=== PATIENT | female | born 1950 | race Caucasian/White ===

== ENCOUNTER 2017-04-19 11:02 | Inpatient (IN) | payer MEDICARE, OTHER ==
[~2017-04-19] VITALS: Ht 147.3 cm; Wt 54.4 kg
[~2017-04-19 11:02] MED LIST: ATIVAN1 MG ORAL; DIOVAN40 MG ORAL; METFORMIN HCL500 M1 ORAL; NITROFURANTOIN100 M2 ORAL; ZOFRAN ODT4 MG ORAL
[2017-04-19 11:56] VITALS: BP 178/76
[2017-04-19 12:08] LABS: BASOPHILS % (AUTO) 1.1 % (0.0-2.0); EOSINOPHILS % (AUTO) 1.5 % (0.0-3.0); LYMPHOCYTES % (AUTO) 21.8 % (20.0-45.0); MEAN CORPUSCULAR HEMOGLOBIN 27.6 PG (27.0-31.0); MEAN CORPUSCULAR HGB CONC 31.2 G/DL (32.0-36.0); MEAN CORPUSCULAR VOLUME 89 FL (80-99); MEAN PLATELET VOLUME 6.1 FL (6.5-10.1); MONOCYTES % (AUTO) 4.9 % (1.0-10.0); NEUTROPHILS % (AUTO) 70.7 % (45.0-75.0); PLATELET COUNT 344 K/UL (150-450); RED BLOOD COUNT 4.69 M/UL (4.20-5.40); RED CELL DISTRIBUTION WIDTH 13.5 % (11.6-14.8)
[2017-04-19 12:41] LABS: ALANINE AMINOTRANSFERASE 47 U/L (3-33); ALBUMIN/GLOBULIN RATIO 1.7 (1.0-2.7); ANION GAP 15 (5-15); ASPARTATE AMINO TRANSFERASE 46 U/L (5-40); CALCIUM 10.4 mg/dL (8.6-10.2); CARBON DIOXIDE 27 mEQ/L (20-30); CHLORIDE 97 mEQ/L (98-107); CREATININE 0.8 mg/dL (0.5-0.9); GLOMERULAR FILTRATION RATE > 60 mL/min (>60); HEMOLYSIS 3; LIPASE 55 U/L (< 60); POTASSIUM 4.3 mEQ/L (3.4-4.9); SODIUM 139 mEQ/L (135-145); TOTAL PROTEIN 7.9 g/dL (6.6-8.7)
[2017-04-19 12:46] LABS: REFLEX LACTIC ACID YES OR NO YES
[2017-04-19] MEDS ORDERED: NS 1000ml 1,600 ML IVLG ONE (13:00)
[2017-04-19 13:20] LABS: APPEARANCE,URINE CLEAR; KETONES,URINE NEGATIVE (NEGATIVE); LEUKOCYTE ESTERASE ,URINE 1+ (NEGATIVE); NITRITE,URINE NEGATIVE (NEGATIVE); PH,URINE 6 (4.5-8.0); PROTEIN,URINE NEGATIVE (NEGATIVE); UROBILINOGEN,URINE NORMAL MG/DL (0.0-1.0)
[2017-04-19 13:44] LABS: BACTERIA,URINE OCCASIONAL /HPF; RBC,URINE 0-2 /HPF (0 - 2); SQUAMOUS EPITHELIAL CELL,UR FEW /LPF (NONE/OCC); WBC,URINE 0-2 /HPF (0 - 2)
--- NOTE | 2017-04-19 13:50 | Diagnostic Imaging Report ---
Indication: Headache Technique: Contiguous 5 mm thick transaxial imaging of the head obtained in a Siemens Sensation [address] scanner. Soft tissue and bone windows generated. Total Dose length Product (DLP): [address] Dose Index Volume (CTDIvol): 70.38, 0.15 mGy Comparison: none Findings: Mild, nonspecific, white matter hypoattenuation is noted throughout the brain consistent with chronic small vessel disease. There is no midline shift, edema, acute hemorrhage, mass effect, or abnormal extra-axial fluid collections. Bones and extra osseous soft tissues are unremarkable. Impression: No acute intracranial bleed, mass effect or edema. Nonspecific white matter hypoattenuation probably due to chronic small vessel disease. The CT scanner at [facility] is accredited by the [employer] and the scans are performed using dose optimization techniques as appropriate to a performed exam including Automatic Exposure control.
--- NOTE | 2017-04-19 14:27 | Emergency Room Report ---
History of Present Illness General Chief Complaint: Nausea, Vomiting, and Diarrhea Source: Patient Present Illness HPI Patient present with a few different complaints Mainly complaining of urinary frequency Our patient also complains of general weakness She has been nauseated Denies any obvious fever Denies any neck pain or photophobia however patient complained of a headache and reports being on antibiotics recently for sinusitis Denies any chest pain at this time she does have intermittent shortness of breath denies any rash Patient provides a history of being off certain medications recently however cannot name all the medications Allergies: Coded Allergies: PROCHLORPERAZINE (Verified Allergy, Mild, Manic episode, 04/19/17) SULFA (SULFONAMIDE ANTIBIOTICS) (Verified Allergy, Unknown, 05/31/16) Patient History Past Medical History: see triage record Pertinent Family History: none Reviewed Nursing Documentation: PMH: Agreed, PSxH: Agreed Nursing Documentation-PMH Past Medical History: No History, Except For Hx Cardiac Problems: No Hx Hypertension: Yes Hx Pacemaker: No Hx Asthma: No Hx COPD: No Hx Diabetes: Yes - Type II Hx Cancer: No Hx Gastrointestinal Problems: No Hx Dialysis: No History Of Psychiatric Problem: Yes - Bipolar II Hx Neurological Problems: No Hx Cerebrovascular Accident: No Hx Seizures: No Review of Systems All Other Systems: negative except mentioned in HPI Physical Exam Vital Signs Date Time Temp Pulse Resp B/P (MAP) Pulse Ox O2 Delivery O2 Flow Rate FiO2 04/19/17 11:03 97.5 82 18 186/80 98 Room Air Sp02 EP Interpretation: reviewed, normal General Appearance: mild distress - appears anxious Head: normocephalic, atraumatic Eyes: bilateral eye PERRL, bilateral eye EOMI ENT: hearing grossly normal, TMs + canals normal, uvula midline, dry mucus membranes Neck: full range of motion, supple, no meningismus, no bony tend Respiratory: lungs clear, normal breath sounds, no rhonchi, no respiratory distress, no retraction, no accessory muscle use Cardiovascular #1: normal peripheral pulses, regular rate, rhythm, no edema, no gallop, no JVD, no murmur Gastrointestinal: normal bowel sounds, non tender, soft, no mass, no organomegaly, non-distended, no guarding, no hernia, no pulsatile mass, no rebound Genitourinary: no CVA tenderness Musculoskeletal: normal inspection Neurologic: oriented x3, responsive, 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 nml as tested, motor strength/ tone normal, sensory intact Psychiatric: anxious Skin: normal color, no rash, warm/dry, palpation normal Lymphatic: normal inspection, no adenopathy Medical Decision Making Diagnostic Impression: Primary Impression: Vomiting Additional Impressions: Frequency of urination Lactic acid acidosis ER Course Patient is a fairly complex patient with multiple differential to consideration including but not limited to cardiac cardiopulmonary and vascular emergencies Patient's lactic acid is elevated raising concern of acidosis and dehydration Patient also appears to have some underlying psychiatric conditions including anxiety is will also be addressed as inpatient Labs Test 04/19/17 11:45 04/19/17 12:48 White Blood Count 7.0 K/UL (4.8-10.8) Red Blood Count 4.69 M/UL (4.20-5.40) Hemoglobin 13.0 G/DL (12.0-16.0) Hematocrit 41.6 % (37.0-47.0) Mean Corpuscular Volume 89 FL (80-99) Mean Corpuscular Hemoglobin 27.6 PG (27.0-31.0) Mean Corpuscular Hemoglobin Concent 31.2 G/DL (32.0-36.0) Red Cell Distribution Width 13.5 % (11.6-14.8) Platelet Count 344 K/UL (150-450) Mean Platelet Volume 6.1 FL (6.5-10.1) Neutrophils (%) (Auto) 70.7 % (45.0-75.0) Lymphocytes (%) (Auto) 21.8 % (20.0-45.0) Monocytes (%) (Auto) 4.9 % (1.0-10.0) Eosinophils (%) (Auto) 1.5 % (0.0-3.0) Basophils (%) (Auto) 1.1 % (0.0-2.0) Sodium Level 139 mEQ/L (135-145) Potassium Level 4.3 mEQ/L (3.4-4.9) Chloride Level 97 mEQ/L (98-107) Carbon Dioxide Level 27 mEQ/L (20-30) Anion Gap 15 (5-15) Blood Urea Nitrogen 18 mg/dL (7-23) Creatinine 0.8 mg/dL (0.5-0.9) Estimat Glomerular Filtration Rate > 60 mL/min (>60) Glucose Level 183 mg/dL (74-106) Lactic Acid Level 2.60 mmol/L (0.66-2.22) Calcium Level 10.4 mg/dL (8.6-10.2) Total Bilirubin < 0.2 mg/dL (0.0-1.2) Aspartate Amino Transf (AST/SGOT) 46 U/L (5-40) Alanine Aminotransferase (ALT/SGPT) 47 U/L (3-33) Alkaline Phosphatase 115 U/L (35-104) Total Protein 7.9 g/dL (6.6-8.7) Albumin 5.0 g/dL (3.5-5.2) Globulin 2.9 g/dL Albumin/Globulin Ratio 1.7 (1.0-2.7) Lipase 55 U/L (< 60) Urine Color Pale yellow Urine Appearance Clear Urine pH 6 (4.5-8.0) Urine Specific [place] 1.015 (1.005-1.035) Urine Protein Negative (NEGATIVE) Urine Glucose (UA) Negative (NEGATIVE) Urine Ketones Negative (NEGATIVE) Urine Occult Blood Negative (NEGATIVE) Urine Nitrite Negative (NEGATIVE) Urine Bilirubin Negative (NEGATIVE) Urine Urobilinogen Normal MG/DL (0.0-1.0) Urine Leukocyte Esterase 1+ (NEGATIVE) Urine RBC 0-2 /HPF (0 - 2) Urine WBC 0-2 /HPF (0 - 2) Urine Squamous Epithelial Cells Few /LPF (NONE/OCC) Urine Bacteria Occasional /HPF (NONE) Rhythm Strip Diag. Results EP Interpretation: yes Rate: 88 Rhythm: NSR, no PVC's, no ectopy CT/MRI/US Diagnostic Results CT/MRI/US Diagnostic Results : Impression CT headImpression: No acute intracranial bleed, mass effect or edema. Nonspecific white matter hypoattenuation probably due to chronic small vessel disease. Last Vital Signs Date Time Temp Pulse Resp B/P (MAP) Pulse Ox O2 Delivery O2 Flow Rate FiO2 04/19/17 11:56 97.6 80 20 178/76 98 Room Air Status: improved Disposition: ADMITTED INPATIENT Condition: Serious Referrals: NON PHYSICIAN (PCP) ASHLEE FIELDS D.O. Apr 19, 2017 14:27
[2017-04-19] MEDS ORDERED: LORazepam Inj 2mg/ml 1ml IV ONE (14:30)
[2017-04-19] MEDS ORDERED: AMLODIPINE BESYL5 MG (15:35)
[2017-04-19] MEDS ORDERED: CYCLOBENZAPRINE10 MG (15:35)
[2017-04-19] MEDS ORDERED: VALSARTAN (15:36)
[2017-04-19] MEDS ORDERED: JANUMET 50-1,01 EACH (15:36)
[2017-04-19] MEDS ORDERED: FLONASE1 SPRAYS (15:36)
[2017-04-19] MEDS ORDERED: OMEPRAZOLE40 M1 (15:36)
[2017-04-19] MEDS ORDERED: ADVAIR 250-501 EACH (15:36)
[2017-04-19] MEDS ORDERED: DEXILANT60 MG (15:36)
[2017-04-19] MEDS ORDERED: VOLTAREN100 G1 (15:36)
[2017-04-19] MEDS ORDERED: LORATADINE10 M2 (15:36)
[2017-04-19 16:12] VITALS: BP 146/75
--- NOTE | 2017-04-19 16:23 | Consultation ---
History of Present Illness General Date patient seen: Apr 19, 2017 Chief Complaint: Headache nausea diarrhea emesis Referring physician: Dr. Vasquez Reason for Consultation: Cephalgia nausea intractable emesis diarrhea Present Illness HPI The patient is a 66 year old gentle lady with pmhx DM, psych disorder namely bi polar depression, total hysterectomy, oopharyctomy and appendectomy who presents to [facility] with with chief complaint of increased frequency of urination for 1 week. The patient states it comes out as a gush. She states it is copious amounts of urine. The patient denies dysuria or hematuria. I have been asked to consult on the case from an internal medicine point of view, at this time a complete renal examination will be conducted including ruling out infectious causes such as urinary tract infection and pyelonephritis. The patients blood sugar in the ER is noted to be elevated and the patient will also be given insulin per sliding scale as needed based on a sliding scale to better control her blood sugars. Allergies: Coded Allergies: PROCHLORPERAZINE (Verified Allergy, Mild, Manic episode, 04/19/17) SULFA (SULFONAMIDE ANTIBIOTICS) (Verified Allergy, Unknown, 05/31/16) Medication History Scheduled Amlodipine Besylate* (Amlodipine Besylate*), BID, (Reported) Cyclobenzaprine Hcl* (Flexeril*), NEEDED, (Reported) Dexlansoprazole (Dexilant), BID, (Reported) Diclofenac Sodium (Voltaren), PRN, (Reported) Fluticasone Propionate (Fluticasone Propionate), BID, (Reported) Fluticasone/Salmeterol (Advair 250-50 Diskus), PRN, (Reported) Levofloxacin* (Levaquin*), 500 MG ORAL DAILY Loratadine (Loratadine), PRN, (Reported) Lorazepam* (Ativan*), 1 MG ORAL BEDTIME Omeprazole (Omeprazole), BEFORE BREAKFAST, (Reported) Sitagliptin Phos/Metformin Hcl (Janumet 50-1,000 Mg Tablet), BID, (Reported) Valsartan (Diovan), 40 MG ORAL DAILY, (Reported) [Valsartan], BID, (Reported) Scheduled PRN Ondansetron Odt* (Zofran Odt*), 4 MG ORAL Q6H PRN for Nausea & Vomiting Patient History Healthcare decision maker Resuscitation status Advanced Directive on File Past Medical/Surgical History Past Medical/Surgical History: (1) Urinary tract infection (2) Vomiting (3) Sepsis (4) HTN (hypertension) (5) Diabetes mellitus type II, uncontrolled (6) Bipolar I disorder with dasia Review of Systems Constitutional: Reports: malaise, weakness Genitourinary: Reports: frequency, pain, retention, urgency Physical Exam General Appearance: no apparent distress Lines, tubes and drains: peripheral HEENT: normocephalic, atraumatic, PERRL Neck: non-tender, normal alignment, supple, normal inspection Respiratory/Chest: chest wall non-tender, normal breath sounds, no respiratory distress Breasts: no masses Cardiovascular/Chest: normal peripheral pulses, normal rate, regular rhythm, no JVD Abdomen: normal bowel sounds, non tender, soft, no organomegaly Genitourinary/Rectal: normal genital exam, normal rectal exam Extremities: normal range of motion, non-tender, normal inspection Skin Exam: normal pigmentation, warm/dry Neurologic: 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 II-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 grossly normal, no motor/sensory deficits Last 24 Hour Vital Signs Date Time Temp Pulse Resp B/P (MAP) Pulse Ox O2 Delivery O2 Flow Rate FiO2 04/19/17 16:12 97.7 89 20 146/75 97 Room Air 04/19/17 11:56 97.6 80 20 178/76 98 Room Air 04/19/17 11:03 97.5 82 18 186/80 98 Room Air Laboratory Tests Test 04/19/17 11:45 04/19/17 12:48 04/19/17 14:24 White Blood Count 7.0 K/UL (4.8-10.8) Red Blood Count 4.69 M/UL (4.20-5.40) Hemoglobin 13.0 G/DL (12.0-16.0) Hematocrit 41.6 % (37.0-47.0) Mean Corpuscular Volume 89 FL (80-99) Mean Corpuscular Hemoglobin 27.6 PG (27.0-31.0) Mean Corpuscular Hemoglobin Concent 31.2 G/DL (32.0-36.0) L Red Cell Distribution Width 13.5 % (11.6-14.8) Platelet Count 344 K/UL (150-450) Mean Platelet Volume 6.1 FL (6.5-10.1) L Neutrophils (%) (Auto) 70.7 % (45.0-75.0) Lymphocytes (%) (Auto) 21.8 % (20.0-45.0) Monocytes (%) (Auto) 4.9 % (1.0-10.0) Eosinophils (%) (Auto) 1.5 % (0.0-3.0) Basophils (%) (Auto) 1.1 % (0.0-2.0) Sodium Level 139 mEQ/L (135-145) Potassium Level 4.3 mEQ/L (3.4-4.9) Chloride Level 97 mEQ/L (98-107) L Carbon Dioxide Level 27 mEQ/L (20-30) Anion Gap 15 (5-15) Blood Urea Nitrogen 18 mg/dL (7-23) Creatinine 0.8 mg/dL (0.5-0.9) Estimat Glomerular Filtration Rate > 60 mL/min (>60) Glucose Level 183 mg/dL (74-106) H Lactic Acid Level 2.60 mmol/L (0.66-2.22) H 2.00 mmol/L (0.66-2.22) Calcium Level 10.4 mg/dL (8.6-10.2) H Total Bilirubin < 0.2 mg/dL (0.0-1.2) Aspartate Amino Transf (AST/SGOT) 46 U/L (5-40) H Alanine Aminotransferase (ALT/SGPT) 47 U/L (3-33) H Alkaline Phosphatase 115 U/L (35-104) H Total Protein 7.9 g/dL (6.6-8.7) Albumin 5.0 g/dL (3.5-5.2) Globulin 2.9 g/dL Albumin/Globulin Ratio 1.7 (1.0-2.7) Lipase 55 U/L (< 60) Urine Color Pale yellow Urine Appearance Clear Urine pH 6 (4.5-8.0) Urine Specific [place] 1.015 (1.005-1.035) Urine Protein Negative (NEGATIVE) Urine Glucose (UA) Negative (NEGATIVE) Urine Ketones Negative (NEGATIVE) Urine Occult Blood Negative (NEGATIVE) Urine Nitrite Negative (NEGATIVE) Urine Bilirubin Negative (NEGATIVE) Urine Urobilinogen Normal MG/DL (0.0-1.0) Urine Leukocyte Esterase 1+ (NEGATIVE) H Urine RBC 0-2 /HPF (0 - 2) Urine WBC 0-2 /HPF (0 - 2) Urine Squamous Epithelial Cells Few /LPF (NONE/OCC) Urine Bacteria Occasional /HPF (NONE) Height (Feet): 4 Height (Inches): 10.00 Weight (Pounds): 120 Assessment/Plan Status: stable, progressing JEAN MARIE STOUT Apr 19, 2017 16:23
[2017-04-19] MEDS ORDERED: Miralax 17gm pkt ORAL PRN (16:30)
[2017-04-19] MEDS ORDERED: Zolpidem 5mg tab ORAL PRN (16:30)
[2017-04-19] MEDS ORDERED: LORazepam Inj 2mg/ml 1ml IV PRN (16:30)
[2017-04-19] MEDS ORDERED: Morphine Sulfate 2mg/ml Inj IVP PRN (16:30)
[2017-04-19] MEDS ORDERED: Mylanta II UD 30ml ORAL PRN (16:30)
--- NOTE | 2017-04-19 16:47 | History & Physical ---
History and Physical History & Physicial Dictated for Int Med-Dr Canchola no. [id number]. ROSALIA CAMARILLO Apr 19, 2017 16:47
[2017-04-19] MEDS ORDERED: cefTRIAXone 1gm/D5W 55ml IVPB SCH ×2 (18:30)
[2017-04-19 20:00] VITALS: BP 119/62
[2017-04-19] MEDS: NovoLOG Insulin Flexpen SUBQ SCH (22:03)
[2017-04-19] MEDS: Heparin 5000 units/ml inj SUBQ SCH (22:07)
--- NOTE | 2017-04-19 23:00 | History and Physical Report ---
DATE OF ADMISSION: 04/19/2017 Chief Complaint: The patient is a 66-year-old white female who presents with chief complaint of increased frequency of urination for 1 week. History Of Present Illness: The patient has a history of diabetes. The patient also has a history of "bladder infections". The patient states history of present illness began approximately a week ago. The patient states she has had increased frequency of urination for 1 week. The patient states it comes out as a gush. She states it is copious amounts of urine. The patient denies dysuria or hematuria. The patient denies fever, chills, nausea, vomiting, or diarrhea. The patient presented to [place] emergency room. The patient was found to have elevated blood sugar. The patient was also found to have urinary tract infection. The patient is admitted for increased frequency of urination to rule out pyelonephritis. PAST MEDICAL HISTORY: Significant for, 1. Type 2 diabetes. 2. Hypertension. 3. Bipolar type 2 hypomanic disorder. PAST SURGICAL HISTORY: Significant for, 1. Total abdominal hysterectomy. 2. Left oophorectomy. 3. Appendectomy. CURRENT MEDICATIONS: 1. Pristiq. 2. Flexeril 2 tablets p.o. at bedtime. 3. Norvasc 5 mg 1 tablet p.o. daily. 4. Diovan 40 mg 1 tablet p.o. daily. 5. Janumet 50/100 mg 1 tablet p.o. twice daily. ALLERGIES: 1. Sulfa. 2. Compazine. Social History: The patient is single and is disabled secondary to bipolar disorder. 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 The patient denies tobacco or alcohol use. Review Of Systems: Constitutional: The patient denies weight loss or weight gain. The patient denies fevers or chills. HEENT: The patient denies ear or throat pain. The patient denies headache. Cardiovascular: The patient denies palpitations or chest pain. Chest: The patient denies wheezing or shortness of breath. Abdominal: The patient denies nausea, vomiting, diarrhea, or constipation. Genitourinary: The patient complains of increased frequency of urination as above. The patient denies dysuria or hematuria. Neuromuscular: The patient denies seizures or generalized weakness. PHYSICAL EXAMINATION: Vital Signs: Temperature 97.5, respirations 18, pulse 82, and blood pressure 186/80. General: The patient is well-developed, well-nourished white female, in no apparent distress. HEENT: Eyes, pupils are equal and responsive to light and accommodation. Extraocular movements are intact. NECK: Supple. No lymphadenopathy. Chest: Lungs are clear to auscultation bilaterally without wheezes or rales. Cardiovascular: Regular rhythm and rate. S1 and S2 are normal without murmurs, rubs, or gallops. Abdomen: Soft, nontender, and nondistended. Positive bowel sounds. No evidence of hepatosplenomegaly. Currently, no rebound or guarding noted. EXTREMITIES: Negative for clubbing, cyanosis, or edema. RECTAL/GENITAL: Refused. Neurologic: Cranial nerves II through XII are grossly intact without focal deficits. Motor strength is 5/5 bilaterally. Deep tendon reflexes are 2+ plantar. Laboratory And Diagnostic Data: WBC 7.0, hemoglobin 13.3, hematocrit 41.6, and platelets 344,000. Sodium 139, potassium 4.3, chloride 97, CO2 27, BUN 18, creatinine 0.8, and glucose 183. Lactic acid elevated at 2.6. Liver function tests mildly elevated with AST of 46, ALT of 47, and alkaline phosphatase of 115. Urine culture is pending. ASSESSMENT: This is a 66-year-old female, 1. Increased frequency of urination. 2. Diabetes type 2. 3. Hypertension. 4. Bipolar type 2 disorder. TREATMENT: 1. Increased frequency of urination. This may be secondary to urinary tract infection versus pyelonephritis. Urine culture is pending. The patient has been started empirically on intravenous ceftriaxone. We will follow recommendations of Infectious Disease. 2. Diabetes type 2. Continue Janumet as above. 3. Hypertension. Continue Norvasc and Diovan as above. 4. Bipolar 2 hypomanic disorder. A psychiatric consultation will be obtained with Dr. Loera. Ralph is nonformulary at [facility]. We will follow recommendations of Psychiatry. Curtis Vasquez M.D. DR: SERINA JOB#: [id number] CC:
[2017-04-20] VITALS: BP 127/65
[2017-04-20 04:00] VITALS: BP 145/76
[2017-04-20] MEDS: NovoLOG Insulin Flexpen SUBQ SCH ×3 (06:25→17:14)
[2017-04-20] MEDS: metFORMIN 500mg tab ORAL SCH ×3 (06:26→17:13)
[2017-04-20] MEDS ORDERED: sitaGLIPtin 50mg tab ORAL SCH (06:30)
[2017-04-20 07:09] LABS: BASOPHILS % (AUTO) 1.3 % (0.0-2.0); EOSINOPHILS % (AUTO) 3.6 % (0.0-3.0); LYMPHOCYTES % (AUTO) 44.2 % (20.0-45.0); MEAN CORPUSCULAR HEMOGLOBIN 28.5 PG (27.0-31.0); MEAN CORPUSCULAR HGB CONC 32.2 G/DL (32.0-36.0); MEAN CORPUSCULAR VOLUME 88 FL (80-99); MEAN PLATELET VOLUME 6.1 FL (6.5-10.1); MONOCYTES % (AUTO) 7.7 % (1.0-10.0); NEUTROPHILS % (AUTO) 43.1 % (45.0-75.0); PLATELET COUNT 259 K/UL (150-450); RED BLOOD COUNT 3.77 M/UL (4.20-5.40); RED CELL DISTRIBUTION WIDTH 13.3 % (11.6-14.8); WHITE BLOOD COUNT 5.6 K/UL (4.8-10.8)
[2017-04-20 07:34] LABS: ALANINE AMINOTRANSFERASE 38 U/L (3-33); ANION GAP 13 (5-15); ASPARTATE AMINO TRANSFERASE 34 U/L (5-40); CARBON DIOXIDE 25 mEQ/L (20-30); CHLORIDE 104 mEQ/L (98-107); CHOLESTEROL 173 mg/dL (< 200); CHOLESTEROL/HDL RATIO 3.7 (3.3-4.4); CREATININE 0.7 mg/dL (0.5-0.9); GLOMERULAR FILTRATION RATE > 60 mL/min (>60); HEMOLYSIS 1; LDL CHOLESTEROL CALC 84 mg/dL (60-99); SODIUM 142 mEQ/L (135-145); THYROID STIMULATING HORMONE 0.945 uIU/mL (0.300-4.500); TOTAL PROTEIN 6.4 g/dL (6.6-8.7)
[2017-04-20 08:19] LABS: CALCIUM 9.4 mg/dL (8.6-10.2)
[2017-04-20] MEDS ORDERED: Losartan 25mg tab ORAL SCH (09:00)
[2017-04-20] MEDS: Heparin 5000 units/ml inj SUBQ SCH (09:32)
[2017-04-20 12:00] VITALS: BP 130/82
--- NOTE | 2017-04-20 13:05 | Consultation ---
History of Present Illness General Chief Complaint: Nausea, Vomiting, and Diarrhea Present Illness HPI 66-year-old white female who presents with chief complaint of increased frequency of urination for 1 week. the pt has hx of bipolar d/o. the pt has anxiety and depressed. stated that the pt has not been taking meds. the pt is going to provide her medication list. no si/hi. Allergies: Coded Allergies: PROCHLORPERAZINE (Verified Allergy, Mild, Manic episode, 04/19/17) SULFA (SULFONAMIDE ANTIBIOTICS) (Verified Allergy, Unknown, 05/31/16) Medication History Scheduled Amlodipine Besylate* (Amlodipine Besylate*), BID, (Reported) Cyclobenzaprine Hcl* (Flexeril*), NEEDED, (Reported) Dexlansoprazole (Dexilant), BID, (Reported) Diclofenac Sodium (Voltaren), PRN, (Reported) Fluticasone Propionate (Fluticasone Propionate), BID, (Reported) Fluticasone/Salmeterol (Advair 250-50 Diskus), PRN, (Reported) Loratadine (Loratadine), PRN, (Reported) Lorazepam* (Ativan*), 1 MG ORAL BEDTIME Nitrofurantoin Monohyd/M-Cryst* (Macrobid 100 Mg*), 100 MG ORAL EVERY 12 HOURS Omeprazole (Omeprazole), BEFORE BREAKFAST, (Reported) Sitagliptin Phos/Metformin Hcl (Janumet 50-1,000 Mg Tablet), BID, (Reported) Valsartan (Diovan), 40 MG ORAL DAILY, (Reported) [Valsartan], BID, (Reported) Scheduled PRN Ondansetron Odt* (Zofran Odt*), 4 MG ORAL Q6H PRN for Nausea & Vomiting Discontinued Medications Metformin Hcl* (Metformin Hcl*), 500 MG ORAL TWICE A DAY, (Reported) Discontinued Reason: MD discontinued med Patient History History Provided By: Patient, Significant Other, PMD Healthcare decision maker Resuscitation status Full Code Advanced Directive on File Past Medical/Surgical History Past Medical/Surgical History: (1) Sepsis (2) Urinary tract infection (3) Frequency of urination (4) Vomiting (5) Lactic acid acidosis Review of Systems Psychiatric: Reports: prior hx, anxiety, depressed feelings, emotional problems Physical Exam General Appearance: no apparent distress, alert Neurologic: alert, oriented x 3, responsive, depressed affect Last 24 Hour Vital Signs Date Time Temp Pulse Resp B/P (MAP) Pulse Ox O2 Delivery O2 Flow Rate FiO2 04/20/17 12:00 97.7 80 18 130/82 96 Room Air 04/20/17 09:24 96 134/84 04/20/17 04:00 96.8 82 20 145/76 96 Room Air 04/20/17 00:00 97.9 94 20 127/65 93 Room Air 04/19/17 20:00 98.1 93 18 119/62 95 Room Air 04/19/17 18:59 89 146/75 04/19/17 16:12 97.7 89 20 146/75 97 Room Air Laboratory Tests Test 04/19/17 14:24 04/20/17 05:35 Lactic Acid Level 2.00 mmol/L (0.66-2.22) White Blood Count 5.6 K/UL (4.8-10.8) Red Blood Count 3.77 M/UL (4.20-5.40) L Hemoglobin 10.7 G/DL (12.0-16.0) L Hematocrit 33.3 % (37.0-47.0) L Mean Corpuscular Volume 88 FL (80-99) Mean Corpuscular Hemoglobin 28.5 PG (27.0-31.0) Mean Corpuscular Hemoglobin Concent 32.2 G/DL (32.0-36.0) Red Cell Distribution Width 13.3 % (11.6-14.8) Platelet Count 259 K/UL (150-450) Mean Platelet Volume 6.1 FL (6.5-10.1) L Neutrophils (%) (Auto) 43.1 % (45.0-75.0) L Lymphocytes (%) (Auto) 44.2 % (20.0-45.0) Monocytes (%) (Auto) 7.7 % (1.0-10.0) Eosinophils (%) (Auto) 3.6 % (0.0-3.0) H Basophils (%) (Auto) 1.3 % (0.0-2.0) Sodium Level 142 mEQ/L (135-145) Potassium Level 4.0 mEQ/L (3.4-4.9) Chloride Level 104 mEQ/L (98-107) Carbon Dioxide Level 25 mEQ/L (20-30) Anion Gap 13 (5-15) Blood Urea Nitrogen 16 mg/dL (7-23) Creatinine 0.7 mg/dL (0.5-0.9) Estimat Glomerular Filtration Rate > 60 mL/min (>60) Glucose Level 127 mg/dL (74-106) H Calcium Level 9.4 mg/dL (8.6-10.2) Total Bilirubin < 0.2 mg/dL (0.0-1.2) Aspartate Amino Transf (AST/SGOT) 34 U/L (5-40) Alanine Aminotransferase (ALT/SGPT) 38 U/L (3-33) H Alkaline Phosphatase 95 U/L (35-104) Total Protein 6.4 g/dL (6.6-8.7) L Albumin 4.3 g/dL (3.5-5.2) Globulin 2.1 g/dL Albumin/Globulin Ratio 2.0 (1.0-2.7) Triglycerides Level 212 mg/dL (< 150) H Cholesterol Level 173 mg/dL (< 200) LDL Cholesterol 84 mg/dL (60-99) HDL Cholesterol 47 mg/dL (> 60) Cholesterol/HDL Ratio 3.7 (3.3-4.4) Thyroid Stimulating Hormone (TSH) 0.945 uIU/mL (0.300-4.500) Microbiology Date/Time Source Procedure Growth Status 04/19/17 17:50 Urine,Clean Catch Urine Culture - Preliminary NO GROWTH Resulted Height (Feet): 4 Height (Inches): 10.00 Weight (Pounds): 120 Medications Current Medications Medications (Trade) Dose Ordered Sig/Haley Route PRN Reason Start Time Stop Time Status Last Admin Dose Admin Acetaminophen (Tylenol) 650 mg Q4H PRN ORAL fever 04/19/17 16:30 05/19/17 16:29 04/20/17 03:25 Al Hydroxide/Mg Hydroxide (Mylanta II) 30 ml Q6H PRN ORAL dyspepsia 04/19/17 16:30 05/19/17 16:29 Amlodipine Besylate (Norvasc) 5 mg BID ORAL 04/19/17 18:00 05/19/17 17:59 04/20/17 09:24 Ceftriaxone Sodium 1 gm/ Dextrose 55 ml @ 110 mls/hr Q24H IVPB 04/19/17 18:30 04/26/17 18:29 04/19/17 18:59 Dextrose (Dextrose 50%) STAT PRN IV Hypoglycemia 04/19/17 16:30 05/19/17 16:29 Heparin Sodium (Porcine) (Heparin 5000 units/ml) 5,000 units EVERY 12 HOURS SUBQ 04/19/17 21:00 05/19/17 20:59 04/19/17 22:07 Insulin Aspart (NovoLOG) BEFORE MEALS AND HS SUBQ 04/19/17 21:00 05/19/17 20:59 04/20/17 06:25 Lorazepam (Ativan 2mg/ml 1ml) 0.5 mg Q4H PRN IV For Anxiety 04/19/17 16:30 04/26/17 16:29 Losartan Potassium (Cozaar) 25 mg DAILY ORAL 04/20/17 09:00 05/20/17 08:59 Metformin HCl (Glucophage) 1,000 mg TIAC ORAL 04/20/17 06:30 05/20/17 06:29 04/20/17 11:53 Morphine Sulfate (Morphine Sulfate) 1 mg Q4H PRN IVP For Pain 4-10 04/19/17 16:30 04/26/17 16:29 Ondansetron HCl (Zofran) 4 mg Q6H PRN IVP Nausea & Vomiting 04/19/17 16:30 05/19/17 16:29 Polyethylene Glycol (Miralax) 17 gm HSPRN PRN ORAL Constipation 04/19/17 16:30 05/19/17 16:29 Sitagliptin Phosphate (Januvia) 50 mg ACBREAKFAST ORAL 04/20/17 06:30 05/20/17 06:29 04/20/17 06:51 Zolpidem Tartrate (Ambien) 5 mg HSPRN PRN ORAL Insomnia 04/19/17 16:30 04/26/17 16:29 Assessment/Plan Status: doing well, stable Assessment/Plan bipolar d/o -cont current -provided michele/Kolby Senior M.D. Apr 20, 2017 13:05
[2017-04-20] MEDS ORDERED: LORazepam 1mg tab ORAL PRN (13:15)
[2017-04-20 16:00] VITALS: BP 144/80
[2017-04-20] MEDS ORDERED: LEVAQUIN500 MG ORAL (16:38)
--- NOTE | 2017-04-20 16:43 | Internal Med Progress Note ---
Subjective Date of Service: Apr 20, 2017 Physician Name Rosalia Camarillo Attending Physician Deshawn Castro MD Current Medications Medications (Trade) Dose Ordered Sig/Haley Route PRN Reason Start Time Stop Time Status Last Admin Dose Admin Acetaminophen (Tylenol) 650 mg Q4H PRN ORAL fever 04/19/17 16:30 05/19/17 16:29 04/20/17 14:56 Al Hydroxide/Mg Hydroxide (Mylanta II) 30 ml Q6H PRN ORAL dyspepsia 04/19/17 16:30 05/19/17 16:29 Amlodipine Besylate (Norvasc) 5 mg BID ORAL 04/19/17 18:00 05/19/17 17:59 04/20/17 09:24 Ceftriaxone Sodium 1 gm/ Dextrose 55 ml @ 110 mls/hr Q24H IVPB 04/19/17 18:30 04/26/17 18:29 04/19/17 18:59 Dextrose (Dextrose 50%) STAT PRN IV Hypoglycemia 04/19/17 16:30 05/19/17 16:29 Heparin Sodium (Porcine) (Heparin 5000 units/ml) 5,000 units EVERY 12 HOURS SUBQ 04/19/17 21:00 05/19/17 20:59 04/19/17 22:07 Insulin Aspart (NovoLOG) BEFORE MEALS AND HS SUBQ 04/19/17 21:00 05/19/17 20:59 04/20/17 06:25 Lorazepam (Ativan) 1 mg Q6H PRN ORAL For Anxiety 04/20/17 13:15 04/27/17 13:14 04/20/17 13:28 Losartan Potassium (Cozaar) 25 mg DAILY ORAL 04/20/17 09:00 05/20/17 08:59 Metformin HCl (Glucophage) 1,000 mg TIAC ORAL 04/20/17 06:30 05/20/17 06:29 04/20/17 11:53 Morphine Sulfate (Morphine Sulfate) 1 mg Q4H PRN IVP For Pain 4-10 04/19/17 16:30 04/26/17 16:29 Ondansetron HCl (Zofran) 4 mg Q6H PRN IVP Nausea & Vomiting 04/19/17 16:30 05/19/17 16:29 Polyethylene Glycol (Miralax) 17 gm HSPRN PRN ORAL Constipation 04/19/17 16:30 05/19/17 16:29 Sitagliptin Phosphate (Januvia) 50 mg ACBREAKFAST ORAL 04/20/17 06:30 05/20/17 06:29 04/20/17 06:51 Temazepam (Restoril) 15 mg HSPRN PRN ORAL Insomnia 04/20/17 13:15 04/27/17 13:14 Allergies: Coded Allergies: PROCHLORPERAZINE (Verified Allergy, Mild, Manic episode, 04/19/17) SULFA (SULFONAMIDE ANTIBIOTICS) (Verified Allergy, Unknown, 05/31/16) ROS Limited/Unobtainable: No Constitutional: Reports: no symptoms HEENT: Reports: no symptoms Cardiovascular: Reports: no symptoms Respiratory: Reports: no symptoms Gastrointestinal/Abdominal: Reports: no symptoms Genitourinary: Reports: no symptoms Neurologic/Psychiatric: Reports: no symptoms Subjective 66 YO F admitted with urinary frequency and UTI. Cover for Int Med-Dr Castro. Objective Last Vital Signs Date Time Temp Pulse Resp B/P (MAP) Pulse Ox O2 Delivery O2 Flow Rate FiO2 04/20/17 12:00 97.7 80 18 130/82 96 Room Air Laboratory Tests Test 04/20/17 05:35 White Blood Count 5.6 K/UL (4.8-10.8) Red Blood Count 3.77 M/UL (4.20-5.40) L Hemoglobin 10.7 G/DL (12.0-16.0) L Hematocrit 33.3 % (37.0-47.0) L Mean Corpuscular Volume 88 FL (80-99) Mean Corpuscular Hemoglobin 28.5 PG (27.0-31.0) Mean Corpuscular Hemoglobin Concent 32.2 G/DL (32.0-36.0) Red Cell Distribution Width 13.3 % (11.6-14.8) Platelet Count 259 K/UL (150-450) Mean Platelet Volume 6.1 FL (6.5-10.1) L Neutrophils (%) (Auto) 43.1 % (45.0-75.0) L Lymphocytes (%) (Auto) 44.2 % (20.0-45.0) Monocytes (%) (Auto) 7.7 % (1.0-10.0) Eosinophils (%) (Auto) 3.6 % (0.0-3.0) H Basophils (%) (Auto) 1.3 % (0.0-2.0) Sodium Level 142 mEQ/L (135-145) Potassium Level 4.0 mEQ/L (3.4-4.9) Chloride Level 104 mEQ/L (98-107) Carbon Dioxide Level 25 mEQ/L (20-30) Anion Gap 13 (5-15) Blood Urea Nitrogen 16 mg/dL (7-23) Creatinine 0.7 mg/dL (0.5-0.9) Estimat Glomerular Filtration Rate > 60 mL/min (>60) Glucose Level 127 mg/dL (74-106) H Calcium Level 9.4 mg/dL (8.6-10.2) Total Bilirubin < 0.2 mg/dL (0.0-1.2) Aspartate Amino Transf (AST/SGOT) 34 U/L (5-40) Alanine Aminotransferase (ALT/SGPT) 38 U/L (3-33) H Alkaline Phosphatase 95 U/L (35-104) Total Protein 6.4 g/dL (6.6-8.7) L Albumin 4.3 g/dL (3.5-5.2) Globulin 2.1 g/dL Albumin/Globulin Ratio 2.0 (1.0-2.7) Triglycerides Level 212 mg/dL (< 150) H Cholesterol Level 173 mg/dL (< 200) LDL Cholesterol 84 mg/dL (60-99) HDL Cholesterol 47 mg/dL (> 60) Cholesterol/HDL Ratio 3.7 (3.3-4.4) Thyroid Stimulating Hormone (TSH) 0.945 uIU/mL (0.300-4.500) Microbiology Date/Time Source Procedure Growth Status 04/19/17 17:50 Urine,Clean Catch Urine Culture - Preliminary NO GROWTH Resulted Intake and Output 04/20/17 04/21/17 19:00 07:00 Intake Total 680 ml Balance 680 ml Intake Oral 680 ml # Voids 3 Objective General: alert, cooperative, no distress, appears stated age Head: normocephalic, without obvious abnormality, atraumatic Eyes: conjunctivae/corneas clear. PERRL, EOM's intact Throat: lips, mucosa, and tongue normal. MMM Neck: supple, symmetrical, trachea midline, and no JVD Lungs: clear to auscultation bilaterally Heart: regular rate and rhythm, S1, S2 normal, no murmur, click, rub or gallop Abdomen: soft, non-tender, non-distended, bowel sounds normal; no masses or organomegaly Extremities: extremities normal, atraumatic, no cyanosis or edema Pulses: 2+ and symmetric Skin: skin color, texture, turgor normal; no rashes or lesions Neurologic: grossly normal, no focal deficits Assessment/Plan Problem List: (1) Diabetes mellitus type II, uncontrolled Assessment & Plan: Continue janumet (2) HTN (hypertension) Assessment & Plan: continue norvasc. (3) Bipolar I disorder with dasia Assessment & Plan: See psych note. (4) Frequency of urination Assessment & Plan: Resolved. (5) Urinary tract infection Assessment & Plan: Urine cult neg. Continue rocephin Status: stable Assessment/Plan Discharge home today with levaquin 500 mg daily for 7 days. ROSALIA CAMARILLO Apr 20, 2017 16:42
--- NOTE | 2017-04-20 18:47 | Pulmonology Progress Note ---
Assessment/Plan Assessment/Plan Acute urinary tract infection Rule out pyelonephritis DM II better controlled Psych disorder Hx Hysterectomy Hx Oopharyctomy Hx Appendectomy Plan Broad spectrum antibiotics continued Urine culture and sensitivity Labs examined Blood sugar better, continue anti-diabetic medications D/C with patient extensively medication and medical follow up and compliance benefits Pain management as needed Tolerating feeding Subjective ROS Limited/Unobtainable: No Constitutional: Reports: fatigue Genitourinary: Reports: frequency, urgency Endocrine: Reports: abnormal blood sugar Allergies: Coded Allergies: PROCHLORPERAZINE (Verified Allergy, Mild, Manic episode, 04/19/17) SULFA (SULFONAMIDE ANTIBIOTICS) (Verified Allergy, Unknown, 05/31/16) Objective Last 24 Hour Vital Signs Date Time Temp Pulse Resp B/P (MAP) Pulse Ox O2 Delivery O2 Flow Rate FiO2 04/20/17 16:00 96.4 101 17 144/80 97 04/20/17 12:00 97.7 80 18 130/82 96 Room Air 04/20/17 09:24 96 134/84 04/20/17 04:00 96.8 82 20 145/76 96 Room Air 04/20/17 00:00 97.9 94 20 127/65 93 Room Air 04/19/17 20:00 98.1 93 18 119/62 95 Room Air 04/19/17 18:59 89 146/75 Intake and Output 04/20/17 04/21/17 19:00 07:00 Intake Total 680 ml Balance 680 ml Intake Oral 680 ml # Voids 3 General Appearance: no acute distress HEENT: normocephalic, atraumatic, PERRL Respiratory/Chest: chest wall non-tender, normal breath sounds, no respiratory distress Breasts: no masses Cardiovascular: normal peripheral pulses, normal rate, regular rhythm, no JVD Abdomen: normal bowel sounds, soft, non tender, no organomegaly, non distended Genitourinary: normal external genitalia Extremities: no cyanosis Skin: no rash, no lesions 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3, Sodium Level 142, Potassium Level 4.0, Chloride Level 104, Carbon Dioxide Level 25, Anion Gap 13, Blood Urea Nitrogen 16, Creatinine 0.7, Estimat Glomerular Filtration Rate > 60, Glucose Level 127H, Calcium Level 9.4, Total Bilirubin < 0.2, Aspartate Amino Transf (AST/SGOT) 34, Alanine Aminotransferase (ALT/SGPT) 38H, Alkaline Phosphatase 95, Total Protein 6.4L, Albumin 4.3, Globulin 2.1, Albumin/Globulin Ratio 2.0, Triglycerides Level 212H , Cholesterol Level 173, LDL Cholesterol 84, HDL Cholesterol 47, Cholesterol/ HDL Ratio 3.7, Thyroid Stimulating Hormone (TSH) 0.945 JEAN MARIE STOUT Apr 20, 2017 18:47
--- NOTE | 2017-04-23 08:14 | Discharge Summary ---
Discharge Summary Hospital Course Date of Admission Apr 19, 2017 at 13:08 Date of Discharge Apr 20, 2017 at 18:05 Admitting Diagnosis SEPSIS HPI Albina Hinojosa is a 66 year old female who was admitted on Apr 19, 2017 at 13:08 for Sepsis Hospital Course dc summary #[id number] Discharge Medications New Medications: Levofloxacin* (Levaquin*) 500 Mg Tablet 500 MG ORAL DAILY for 7 Days, TAB Continued Medications: Amlodipine Besylate* (Amlodipine Besylate*) 5 Mg Tablet BID Cyclobenzaprine Hcl* (Flexeril*) 10 Mg Tablet NEEDED Dexlansoprazole (Dexilant) 60 Mg Cap.dr.bp BID Diclofenac Sodium (Voltaren) 100 Gm Gel..gram. PRN Fluticasone Propionate (Fluticasone Propionate) 16 Gm [place].susp BID Fluticasone/Salmeterol (Advair 250-50 Diskus) 1 Each Blst.w.dev PRN Loratadine (Loratadine) 10 Mg Tablet PRN Lorazepam* (Ativan*) 1 Mg Tablet 1 MG ORAL BEDTIME, #10 TAB Omeprazole (Omeprazole) 40 Mg Capsule.dr BEFORE BREAKFAST Ondansetron Odt* (Zofran Odt*) 4 Mg Tab.rapdis 4 MG ORAL Q6H PRN for Nausea & Vomiting, #30 TAB 0 Refills Sitagliptin Phos/Metformin Hcl (Janumet 50-1,000 Mg Tablet) 1 Each Tablet BID Valsartan (Diovan) 40 Mg Tablet 40 MG ORAL DAILY, TAB [Valsartan] () BID Discontinued Medications: Nitrofurantoin Monohyd/M-Cryst* (Macrobid 100 Mg*) 100 Mg Capsule 100 MG ORAL EVERY 12 HOURS for 7 Days, CAP Discharge Condition Upon Discharge: stable Discharge Disposition Patient was discharged to Home () Discharge Diagnoses: Discharge Instructions Discharge Instructions Special Instructions I have been assigned to complete a D/C Summary on this account. I was not involved in the patient management Lisa Edagr NP ([facility]) Apr 23, 2017 08:14
--- NOTE | 2017-04-24 03:30 | Discharge Summary 2 SIG ---
DATE OF ADMISSION: 04/19/2017 DATE OF DISCHARGE: 04/20/2017 REASON FOR ADMISSION: 66-year-old female with a history of hypertension, diabetes mellitus type 2, and bipolar disorder type 2, presented to emergency room for evaluation due to the urinary frequency. The patient also reported generalized weakness and nausea. Denied fever or chills. No neck pain. No chest pain. No shortness of breath. No rash. Workup in the emergency room revealed no leukocytosis. No fever. Elevated lactic acid -2.6. AST slightly elevated -46 and ALT- 47. The patient was admitted for further management. ADMITTING DIAGNOSES: 1. Urinary frequency, 2. Possible urinary tract infection versus pyelonephritis. 3. Hypertension. 4. Diabetes. 5. Bipolar type 2 disorder. HOSPITAL STAY: The patient was admitted. The patient was started on empiric antibiotic. Urine was sent for culture. Blood sugar was managed with Janumet and was stable. Blood pressure was managed with the regimen of calcium channel delmi and angiotensin receptor delmi and was stable. Psychiatrist had seen and evaluated the patient. Diagnosed the patient with bipolar disorder type 2 . Current psychiatric medications were continued. Repeated lactic acid in two hours - 2.0. AST down to 34 and ALT down to 38. CT of the head was done in the emergency room and was negative for any acute intracranial pathology. Blood cultures were negative. Urine culture preliminary negative. The patient was discharged home on oral antibiotics empirically. Urinary frequency decreased. Due to the rapid and unexpected improvement in the patient's condition, the patient was discharged in one day. FINAL DIAGNOSES: 1. Urinary frequency, 2. Possible urinary tract infection. 3. Hypertension. 4. Diabetes. 5. Bipolar disorder type 2. DISCHARGE MEDICATIONS: See medication reconciliation list. DISCHARGE INSTRUCTIONS: The patient was discharged home. Follow up with the primary medical doctor. Deshawn Castro M.D. I have been assigned to dictate discharge summary on this account and I was not involved in the patient's management. Lisa Edgar ([facility] CampusJean Marie NReenaPReena DR: CHEPE JOB#: [id number] CC: KIRSTIN
== END 2017-04-20 18:05 | disposition home or self-care (01) | DRG 690 ==
LOC: EMR 12:05 → 4E 13:08 → EDBEDREQ 13:45
DX: N39.0 Urinary tract infection, site not specified (principal); I10 Essential (primary) hypertension; F31.81 Bipolar II disorder; E11.9 Type 2 diabetes mellitus without complications; Z88.2 Allergy status to sulfonamides; Z88.8 Allergy status to other drugs, medicaments and biological substances
CPT/HCPCS: 36415; 70450; 80053; 80061; 81003; 82962; 83605; 83690; 84443; 85025; 87040; 87086; 99285; J1815; J2405